=== PATIENT | male | born 1960 | race Caucasian/White ===

== ENCOUNTER 2018-11-22 09:45 | Inpatient (IN) | payer OTHER ==
--- NOTE | 2018-11-22 11:52 | HP ---
CIWA Score Nausea/Vomitin Muscle Tremors: 2 Anxiety: 2 Agitation: 3 Paroxysmal Sweats: 1-Minimal Palms Moist Orientation: 0-Oriented Tacttile Disturbances: 1-Very Mild Itch/Numbness Auditory Disturbances: 0-None Visual Disturbances: 1-Very Mild Sensitivity Headache: 2-Mild CIWA-Ar Total Score: 14 - Admission Criteria OASAS Guidelines: Admission for Medically Managed Detox: Requires at least one of the followin. CIWA greater than 12 2. Seizures within the past 24 hours 3. Delirium tremens within the past 24 hours 4. Hallucinations within the past 24 hours 5. Acute intervention needed for co occurring medical disorder 6. Acute intervention needed for co occurring psychiatric disorder 7. Severe withdrawal that cannot be handled at a lower level of care (continued vomiting, continued diarrhea, abnormal vital signs) requiring intravenous medication and/or fluids 8. Admission ROS [facility] - HPI Allergies/Adverse Reactions: Allergies Allergy/AdvReac Type Severity Reaction Status Date / Time No Known Allergies Allergy Verified 11/22/18 10:04 - Ebola screening Have you traveled outside of the country in the last 21 days: No Have you had contact with anyone from an Ebola affected area: No Do you have a fever: No Patient History - Substances abused Alcohol Substance route: Oral Frequency: Daily Amount used: 750ml bottle vodka Age of first use: 42 Date of last use: 11/20/18 Admission Physical Exam [facility] Vital Signs Vital Signs: Vital Signs - 24 hr 11/22/18 10:06 Temperature 98.2 F Pulse Rate 103 H Respiratory 18 Rate Blood Pressure 150/96 Breathalyzer - Breathalyzer Breathalyzer: 0 Urine Drug Screen - Test Device Lot number: [id number] Expiration date: 08/22/20 - Control Is test valid?: Yes - Results Drug screen NEGATIVE: No Urine drug screen results: BZO-Benzodiazepines
--- NOTE | 2018-11-22 12:29 | HP ---
CIWA Score Nausea/Vomitin Muscle Tremors: 2 Anxiety: 2 Agitation: 3 Paroxysmal Sweats: 1-Minimal Palms Moist Orientation: 0-Oriented Tacttile Disturbances: 1-Very Mild Itch/Numbness Auditory Disturbances: 0-None Visual Disturbances: 1-Very Mild Sensitivity Headache: 2-Mild CIWA-Ar Total Score: 14 - Admission Criteria OASAS Guidelines: Admission for Medically Managed Detox: Requires at least one of the followin. CIWA greater than 12 2. Seizures within the past 24 hours 3. Delirium tremens within the past 24 hours 4. Hallucinations within the past 24 hours 5. Acute intervention needed for co occurring medical disorder 6. Acute intervention needed for co occurring psychiatric disorder 7. Severe withdrawal that cannot be handled at a lower level of care (continued vomiting, continued diarrhea, abnormal vital signs) requiring intravenous medication and/or fluids 8. Admission ROS [facility] Chief Complaint: 58 y/o M with PMH depression (not dx) who presents for alcohol detox. Allergies/Adverse Reactions: Allergies Allergy/AdvReac Type Severity Reaction Status Date / Time No Known Allergies Allergy Verified 11/22/18 10:04 History of Present Illness: 58 y/o M with PMH depression (not dx), who presents for detox from alcohol. Per pt, his last drink was this past Tuesday (2 days prior to DOA). Drank 1/2 bottle of vodka. Usually drinks in "phases." States that he drinks for few days, then stops and restarts. During the days he drinks, he usually has 5 shots of vodka. States that depression is a trigger for him, and that alcohol makes him feel "numb." Has auditory hallucinations when he drinks, but not when he withdraws. Longest sobriety for few months. No history of alcohol withdrawal sz, or blackouts. States that he took a 1/2 pill of xanax yesterday since he was feeling stessed. 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 States that he has a drug counselor at work who referred him here to our detox. Concerning his depression, +loss of sleep, +loss of interest, +loss of energy, + loss of concentration, +psychomotor agitation - these symptoms started last December. After detox, pt wants to go to a psychiatrist to address his depression. 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 quit smoking 6 months ago. - Ebola screening Have you traveled outside of the country in the last 21 days: No Have you had contact with anyone from an Ebola affected area: No Have you been sick,other than usual withdrawal symptoms: No Do you have a fever: No - Review of Systems Constitutional: Chills, Diaphoresis, Fever, Weakness EENT: reports: No Symptoms Reported Respiratory: reports: No Symptoms reported Cardiac: reports: No Symptoms Reported GI: reports: No Symptoms Reported : reports: No Symptoms Reported Musculoskeletal: reports: No Symptoms Reported Integumentary: reports: No Symptoms Reported Neuro: reports: No Symptoms reported Endocrine: reports: No Symptoms Reported Hematology: reports: No Symptoms Reported Psychiatric: reports: Orientated x3, Agitated, Anxious Patient History - Patient Medical History Hx Depression: Yes (not dx previously) - Patient Surgical History Past Surgical History: No - PPD History Documented Results: Negative w/o proof PPD to be Administered?: Yes - Reproductive History Patient is a Female of Child Bearing Age (11 -55 yrs old): No - Smoking Cessation Smoking history: Former smoker Have you smoked in the past 12 months: Yes Initiated information on smoking cessation: Yes 'Breaking Loose' booklet given: 11/22/18 - Substance & Tx. History Hx Alcohol Use: Yes Substance Use Type: Alcohol Hx Substance Use Treatment: No (first time here ) - Substances abused Alcohol Substance route: Oral Frequency: Daily Amount used: 750ml bottle vodka Age of first use: 42 Date of last use: 11/20/18 Family Disease History - Family Disease History Family History: Denies Admission Physical Exam [facility] - Vital Signs Vital Signs: Vital Signs - 24 hr 11/22/18 10:06 Temperature 98.2 F Pulse Rate 103 H Respiratory 18 Rate Blood Pressure 150/96 - Physical General Appearance: Yes: Within Normal Limits, Appropriately Dressed HEENTM: Yes: Within Normal Limits, Hearing grossly Normal Respiratory: Yes: Within Normal Limits Neck: Yes: Supple Breast: Yes: Breast Exam Deferred Cardiology: Yes: Regular Rate, S1, S2, Tachycardia Abdominal: Yes: Within Normal Limits Genitourinary: Yes: Within Normal Limits Back: Yes: Within Normal Limits Musculoskeletal: Yes: Within Normal Limits Extremities: Yes: Within Normal Limits, Other (+mild UE tremors) 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 Integumentary: Yes: Within Normal Limits Lymphatic: Yes: Within Normal Limits - Diagnostic (1) Alcohol dependence with withdrawal, uncomplicated Current Visit: Yes Status: Acute (2) Depression Current Visit: Yes Status: Chronic Qualifiers: Depression Type: major depressive disorder (3) Dehydration Current Visit: Yes Status: Chronic Cleared for Admission S - Detox or Rehab [facility] Level of Care: Medically Managed Detox Regimen/Protocol: Librium Breathalyzer - Breathalyzer Breathalyzer: 0 Urine Drug Screen - Test Device Lot number: [id number] Expiration date: 08/22/20 - Control Is test valid?: Yes - Results Drug screen NEGATIVE: No Urine drug screen results: BZO-Benzodiazepines Inpatient Rehab Admission - Rehab Decision to Admit Inpatient rehab admission?: No
[2018-11-22] MEDS ORDERED: chlordiazePOXIDE HCL 10 MG CAPSULE PO PRN (12:50)
[2018-11-22] MEDS ORDERED: MAG HYDROX/AL HYDROX/SIMETH 30 ML UNIT-DOSE CUP PO PRN (12:52)
[2018-11-22] MEDS ORDERED: BISMUTH SUBSALICYLATE 524 MG/30 ML UD PO PRN (12:52)
[2018-11-22] MEDS ORDERED: MENTHOL/PHENOL 1 EACH UD MM PRN (12:52)
[2018-11-22] MEDS ORDERED: ACETAMINOPHEN 325 MG TABLET (FP) PO PRN ×2 (12:52)
[2018-11-22] MEDS ORDERED: IBUPROFEN 400 MG TABLET (FP) PO PRN (12:52)
[2018-11-22] MEDS ORDERED: MAGNESIUM HYDROX 2400MG/30ML ORAL SUSPENSION 30 ML CUP PO PRN (12:52)
[2018-11-22] MEDS ORDERED: hydrOXYzine PAMOATE 25 MG CAPSULE (FP) PO PRN (12:52)
--- NOTE | 2018-11-22 13:27 | PN ---
[facility] Progress Note Note: Patient was reviewed and is appropriate for admission to detox. Patient history and orders were reviewed and is correct. Dr. Mathur
[2018-11-22] MEDS: chlordiazePOXIDE HCL 25 MG CAPSULE PO SCH ×2 (14:32→21:04)
[2018-11-22 16:34] LABS: HEMATOCRIT 45.6 % (35.4-49); HEMOGLOBIN 15.6 GM/dL (11.7-16.9); MCH 30.3 pg (25.7-33.7); MCHC 34.3 g/dl (32.0-35.9); MEAN CELL VOLUME 88.4 fl (80-96); MEAN PLT VOLUME 7.8 fl (7.5-11.1); PLATELET COUNT 228 K/MM3 (134-434); RBC 5.15 M/mm3 (4.00-5.60); RDW 14.6 % (11.9-15.9); WHITE BLOOD COUNT 8.2 K/mm3 (4.0-10.0)
[2018-11-22 16:42] LABS: ALBUMIN 4.1 g/dl (3.4-5.0); BILIRUBIN,TOTAL 2.1 mg/dL (0.2-1); BLOOD UREA NITROGEN 7.8 mg/dL (7-18); CALCIUM 9.2 mg/dL (8.5-10.1); TOT PROT 7.9 g/dl (6.4-8.2)
[2018-11-22] MEDS: THIAMINE HCL 100 MG TABLET (FP) PO SCH (21:04)
[2018-11-22] MEDS: MELATONIN 5 MG TABLETS PO PRN (21:08)
[2018-11-23] MEDS: chlordiazePOXIDE HCL 25 MG CAPSULE PO SCH ×3 (05:46→22:12)
[2018-11-23] MEDS: PRENATAL VITAMINS W/ FOLIC ACID TABLET (FP) PO SCH (10:11)
--- NOTE | 2018-11-23 10:47 | PN ---
S CIWA - CIWA Score Nausea/Vomitin-Mild Nausea/No Vomiting Muscle Tremors: 3 Anxiety: 3 Agitation: 3 Paroxysmal Sweats: 1-Minimal Palms Moist Orientation: 0-Oriented Tacttile Disturbances: 1-Very Mild Itch/Numbness Auditory Disturbances: 0-None Visual Disturbances: 0-None Headache: 0-None Present CIWA-Ar Total Score: 12 S Progress Note (SOAP) Subjective: 58 years old male admitted on 11/22/18 for acute alcohol withdrawal sx management doing well with librium detox regimen ambulating on hallway goal directed behavior that feeling better than yesterday requests to leave on Tuesday to prepare for Tuesday workday Objective: 11/23/18 10:48 Vital Signs Temperature 98.0 F 11/23/18 09:31 Pulse Rate 93 H 11/23/18 09:31 Respiratory Rate 18 11/23/18 09:31 Blood Pressure 138/94 11/23/18 09:31 O2 Sat by Pulse Oximetry (%) Laboratory Last Values WBC 8.2 K/mm3 (4.0-10.0) 11/22/18 13:30 RBC 5.15 M/mm3 (4.00-5.60) 11/22/18 13:30 Hgb 15.6 GM/dL (11.7-16.9) 11/22/18 13:30 Hct 45.6 % (35.4-49) 11/22/18 13:30 MCV 88.4 fl (80-96) 11/22/18 13:30 MCH 30.3 pg (25.7-33.7) 11/22/18 13:30 MCHC 34.3 g/dl (32.0-35.9) 11/22/18 13:30 RDW 14.6 % (11.9-15.9) 11/22/18 13:30 Plt Count 228 K/MM3 (134-434) 11/22/18 13:30 MPV 7.8 fl (7.5-11.1) 11/22/18 13:30 Sodium 132 mmol/L (136-145) L 11/22/18 13:30 Potassium 4.0 mmol/L (3.5-5.1) 11/22/18 13:30 Chloride 94 mmol/L (98-107) L 11/22/18 13:30 Carbon Dioxide 25 mmol/L (21-32) 11/22/18 13:30 Anion Gap 13 MMOL/L (8-16) 11/22/18 13:30 BUN 7.8 mg/dL (7-18) 11/22/18 13:30 Creatinine 1.0 mg/dL (0.55-1.3) 11/22/18 13:30 Est GFR (CKD-EPI)AfAm 97.08 11/22/18 13:30 Est GFR (CKD-EPI)NonAf 83.76 11/22/18 13:30 Random Glucose 212 mg/dL (74-106) H 11/22/18 13:30 Calcium 9.2 mg/dL (8.5-10.1) 11/22/18 13:30 Total Bilirubin 2.1 mg/dL (0.2-1) H 11/22/18 13:30 AST 45 U/L (15-37) H 11/22/18 13:30 ALT 40 U/L (13-61) 11/22/18 13:30 Alkaline Phosphatase 62 U/L (45-117) 11/22/18 13:30 Total Protein 7.9 g/dl (6.4-8.2) 11/22/18 13:30 Albumin 4.1 g/dl (3.4-5.0) 11/22/18 13:30 lab noted Assessment: 11/23/18 10:49 alcohol withdrawal sx Plan: continue alcohol detox
--- NOTE | 2018-11-23 13:51 | CONSULT ---
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 This is patient 's first admission to detox at [facility]. Patient admitted to for alcohol dependence. Substance Abuse History: Smoking Cessation. Smoking history: Former smoker. Have you smoked in the past 12 months: Yes. Initiated information on smoking cessation: Yes. 'Breaking Loose' booklet given: 11/22/18. - Substance & Tx. History. Hx Alcohol Use: Yes. Substance Use Type: Alcohol. Hx Substance Use Treatment: No (first time here ). - Substances abused. Alcohol. Substance route: Oral. Frequency: Daily. Amount used: 750ml bottle vodka. Age of first use: 42. Date of last use: 11/20/18 Medical History: denies. Psychiatric History: Patient denies h/o psychiatric hospitalization, outpatient care, and suicide attempt. Patient reports feeling sad, lack of interest, amotivation, and hopelessness. He has never been treated by a psychiatrist but is scheduled to see a psychiatrist on November 28, 2018. Despite exhibiting multiple depressive symptoms, patient has a desire to live, has no thoughts to hurt himself or others and is motivated to complete detox. Physical/Sexual Abuse/Trauma History: denies. Mental Status Exam - Mental Status Exam Alert and Oriented to: Time, Place, Person Cognitive Function: Good Patient Appearance: Well Groomed Mood: Sad Affect: Mood Congruent Patient Behavior: Cooperative Speech Pattern: Appropriate Voice Loudness: Normal Thought Process: Goal Oriented Thought Disorder: Not Present Hallucinations: Denies Suicidal Ideation: Denies Homicidal Ideation: Denies Insight/Judgement: Poor Sleep: Poorly Appetite: Fair Muscle strength/Tone: Normal Gait/Station: Normal Psychiatric Findings - Problem List ([place] 1, 2,3) (1) Alcohol-induced mood disorder Current Visit: Yes Status: Acute (2) Alcohol dependence with withdrawal, uncomplicated Current Visit: Yes Status: Acute (3) Depressive disorder Current Visit: Yes Status: Acute - Initial Treatment Plan Initial Treatment Plan: Psychoeducation provided. Detoxification in progress. Observation.
[2018-11-23] MEDS: MELATONIN 5 MG TABLETS PO PRN (22:12)
[2018-11-23] MEDS: THIAMINE HCL 100 MG TABLET (FP) PO SCH (22:12)
[2018-11-24] MEDS: chlordiazePOXIDE 5 MG CAPSULE PO SCH ×3 (06:35→22:10)
[2018-11-24] MEDS: PRENATAL VITAMINS W/ FOLIC ACID TABLET (FP) PO SCH (10:12)
--- NOTE | 2018-11-24 16:51 | PN ---
[facility] CIWA - CIWA Score Nausea/Vomitin-No Nausea/No Vomiting Muscle Tremors: None Anxiety: 0-No Anxiety, at Ease Agitation: 2 Paroxysmal Sweats: No Perspiration Orientation: 0-Oriented Tacttile Disturbances: 0-None Auditory Disturbances: 0-None Visual Disturbances: 0-None Headache: 0-None Present CIWA-Ar Total Score: 2 [facility] Progress Note (SOAP) Subjective: Patient denies current Withdrawal / Detox symptoms and reports that he feels well overall at this time. Objective: PATIENT A & O X 3, OBSERVED AMBULATING ON UNIT UNASSISTED. IN NO ACUTE DISTRESS. 11/24/18 16:48 Vital Signs Temperature 99 F 11/24/18 13:03 Pulse Rate 74 11/24/18 13:03 Respiratory Rate 20 11/24/18 13:03 Blood Pressure 132/84 11/24/18 13:03 O2 Sat by Pulse Oximetry (%) Laboratory Tests 11/22/18 11/22/18 11/22/18 13:30 13:30 13:30 WBC 8.2 RBC 5.15 Hgb 15.6 Hct 45.6 MCV 88.4 MCH 30.3 MCHC 34.3 RDW 14.6 Plt Count 228 MPV 7.8 Sodium 132 L Potassium 4.0 Chloride 94 L Carbon Dioxide 25 Anion Gap 13 BUN 7.8 Creatinine 1.0 Est GFR (CKD-EPI)AfAm 97.08 Est GFR (CKD-EPI)NonAf 83.76 Random Glucose 212 H Calcium 9.2 Total Bilirubin 2.1 H AST 45 H ALT 40 Alkaline Phosphatase 62 Total Protein 7.9 Albumin 4.1 RPR Titer Nonreactive LABS NOTED. RESULTS OF DETOX ADMISSION QFT /TB TEST PENDING. 11/24/18 16:49 Assessment: 11/24/18 16:49 WITHDRAWAL SYMPTOMS. ELEVATED AST LEVEL. HYPERBILIRUBINEMIA. HYPERGLYCEMIA. Plan: CONTINUE DETOX. REPORTS THAT HE IS TOLERATING CURRENT WITHDRAWAL / DETOX SYMPTOMS WELL. AT PATIENT'S REQUEST, CURRENT DETOX MEDICATION REGIMEN MODIFIED SO THAT PATIENT MAY BE DISCHARGED TOMORROW, 11/25/2018.
[2018-11-24] MEDS: MELATONIN 5 MG TABLETS PO PRN (22:10)
[2018-11-24] MEDS: THIAMINE HCL 100 MG TABLET (FP) PO SCH (22:10)
[2018-11-25] MEDS ORDERED: chlordiazePOXIDE HCL 10 MG CAPSULE PO PRN
[2018-11-25] MEDS ORDERED: chlordiazePOXIDE HCL 10 MG CAPSULE PO SCH (05:00)
[2018-11-25] MEDS ORDERED: chlordiazePOXIDE HCL 10 MG CAPSULE PO ONE (05:00)
[2018-11-25 06:03] VITALS: BP 144/85; PULSE 91; TEMP 98.1
--- NOTE | 2018-11-25 15:42 | DS ---
[facility] Detox Discharge Summary Admission Date: 11/22/18 Discharge Date: 11/25/18 - History Present History: Alcohol Dependence Additional Comments: PATIENT RETURNING HOME AND TO WORK. JUNIOR James NOTES THAT HE HAS UPCOMING APPOINTMENT WITH PSYCHIATRIST FOR AFTERCARE. PATIENT ADVISED TO CONSIDER LOCAL 12-STEP / AA OUTPATIENT SUPPORT GROUP PROGRAMS FOR AFTERCARE. PATIENT ALSO ADVISED TO FOLLOW-UP WITH ASW SPECIALIST AFTER DISCHARGE FROM DETOX FOR GENERAL MEDICAL ASSESSMENT AND FOR RANDOM GLUCOSE AND TOTAL BILIRUBIN LEVELS NOTED ON DETOX ADMISSION LABORATORY ASSESSMENT. PATIENT VERBALIZED UNDERSTANDING OF ALL RECOMMENDATIONS PRESENTED TO HIM PRIOR TO DISCHARGE FROM DETOX UNIT. COPIES OF RESULTS OF ALL LABS DRAWN WHILE ADMITTED FOR DETOX GIVEN TO PATIENT AT TIME OF DISCHARGE FROM DETOX UNIT. PATIENT WAS DISCHARGED FROM DETOX UNIT IN STABLE MEDICAL CONDITION. Pertinent Past History: Depressive Disorder, Dehydration, Hyperglycemia, Elevated AST Level, Hyperglycemia, Hyperbilirubinemia. - Physical Exam Results Vital Signs: Vital Signs Temperature 98.1 F 11/25/18 06:02 Pulse Rate 91 H 11/25/18 06:02 Respiratory Rate 18 11/25/18 06:02 Blood Pressure 144/85 11/25/18 06:02 O2 Sat by Pulse Oximetry (%) Pertinent Admission Physical Exam Findings: WITHDRAWAL SYMPTOMS. Laboratory Tests 11/22/18 11/22/18 11/22/18 13:30 13:30 13:30 WBC 8.2 RBC 5.15 Hgb 15.6 Hct 45.6 MCV 88.4 MCH 30.3 MCHC 34.3 RDW 14.6 Plt Count 228 MPV 7.8 Sodium 132 L Potassium 4.0 Chloride 94 L Carbon Dioxide 25 Anion Gap 13 BUN 7.8 Creatinine 1.0 Est GFR (CKD-EPI)AfAm 97.08 Est GFR (CKD-EPI)NonAf 83.76 Random Glucose 212 H Calcium 9.2 Total Bilirubin 2.1 H AST 45 H ALT 40 Alkaline Phosphatase 62 Total Protein 7.9 Albumin 4.1 RPR Titer Nonreactive LABS NOTED. - Treatment Hospital Course: Detox Protocol Followed, Detoxed Safely, Responded well, Discharged Condition Good Patient has Accepted a Rehab Referral to: [facility] ADVISED TO CONSIDER LOCAL 12- STEP/AA OUTPATIENT SUPPORT GROUPS. - Medication Discharge Medications: Ambulatory Orders NK [No Known Home Medication] 11/22/18 - Diagnosis (1) Alcohol dependence with withdrawal, uncomplicated Status: Acute (2) Alcohol-induced mood disorder Status: Acute (3) Depressive disorder Status: Acute (4) Elevated aspartate aminotransferase level Status: Acute (5) Hyperbilirubinemia Status: Acute (6) Hyperglycemia Status: Acute (7) Dehydration Status: Chronic (8) Depression Status: Chronic Qualifiers: Depression Type: major depressive disorder Major depression recurrence: unspecified whether recurrent Active/Remission status: remission status unspecified Qualified Code(s): F32.9 - Major depressive disorder, single episode, unspecified - AMA Did Patient Leave Against Medical Advice: No
[2018-11-26] MEDS ORDERED: chlordiazePOXIDE HCL 10 MG CAPSULE PO ONE (05:00)
== END 2018-11-25 09:21 | disposition home or self-care (01) | DRG 897 ==
LOC: YASAS 09:45 → Y3N 13:07
PROVIDERS: ADMIT Surgery; ATTEND Surgery
PROC: HZ2ZZZZ Detoxification Services for Substance Abuse Treatment (ICD-10-PCS; principal; 2018-11-22)
DX: F10.230 Alcohol dependence with withdrawal, uncomplicated (principal); F10.24 Alcohol dependence with alcohol-induced mood disorder; F32.9 Major depressive disorder, single episode, unspecified; R73.9 Hyperglycemia, unspecified; R74.0 Nonspecific elevation of levels of transaminase and lactic acid dehydrogenase [LDH]; E80.6 Other disorders of bilirubin metabolism; E86.0 Dehydration; R00.0 Tachycardia, unspecified; Z87.891 Personal history of nicotine dependence
CPT/HCPCS: 36415; 80053; 85027; 86480; 86593